=== PATIENT | male | born 1965 | race Caucasian/White ===

== ENCOUNTER 2017-03-31 16:19 | Emergency (ER) | payer OTHER | END 2017-03-31 18:12 | disposition home or self-care (01) | LOC: FER 16:19 | DX: Z43.1 Encounter for attention to gastrostomy (principal); F17.210 Nicotine dependence, cigarettes, uncomplicated; Z85.05 Personal history of malignant neoplasm of liver | CPT/HCPCS: 74000 ==

== ENCOUNTER 2017-04-21 13:25 | Emergency (ER) | payer OTHER | END 2017-04-21 16:41 | disposition home or self-care (01) | LOC: FER 13:25 | DX: S42.92XA Fracture of left shoulder girdle, part unspecified, initial encounter for closed fracture (principal); S70.02XA Contusion of left hip, initial encounter; S80.02XA Contusion of left knee, initial encounter; M25.522 Pain in left elbow; Z85.05 Personal history of malignant neoplasm of liver; W19.XXXA Unspecified fall, initial encounter | CPT/HCPCS: 72170; 73060; 73502; 73564; 99284 ==